=== PATIENT | female | born 2000 | race Caucasian/White ===

== ENCOUNTER 2018-10-19 20:13 | Emergency (ER) | payer OTHER ==
[~2018-10-19] VITALS: Ht 172.7 cm; Wt 55.5 kg
[2018-10-19 20:13] VITALS: BP 136/66
[2018-10-19 21:27] LABS: URINE PREG TEST NEGATIVE (NEGATIVE)
[2018-10-19] MEDS ORDERED: PYRI1TAB5 PO (21:53)
[2018-10-19] MEDS ORDERED: MACR100C43 PO (21:53)
[2018-10-19] MEDS ORDERED: PHENAZOPYRIDINE 100 MG TAB PO ONE (22:00)
[2018-10-19] MEDS ORDERED: NITROFURANTOIN (MACROBID) 100 MG CAP PO ONE (22:00)
== END 2018-10-19 22:01 | disposition home or self-care (01) ==
LOC: M ED 20:13
DX: N39.0 Urinary tract infection, site not specified (principal); R31.9 Hematuria, unspecified; Z88.0 Allergy status to penicillin

== ENCOUNTER 2019-02-14 11:13 | Emergency (ER) | payer OTHER ==
[~2019-02-14] VITALS: Ht 172.7 cm; Wt 56.8 kg
[~2019-02-14 11:13] MED LIST: MACR100C43 PO; PYRI1TAB5 PO
--- NOTE | 2019-02-14 13:45 | REP ---
Clinical: Bilateral pelvic pain . Technique: Transabdominal pelvic ultrasound followed by transvaginal examination for better evaluation of the endometrium and adnexa with color Doppler evaluation of the ovaries. Findings: Bladder is unremarkable and measures 9.0 x 6.2 x 2.6 cm . Normal retroverted uterus measures 6.6 x 3.3 x 4.3 cm . The endometrial complex measures 7.8 mm thickness. No discrete uterine or endometrial abnormalities are appreciated. Bilateral ovaries are normal in appearance and vascularity without evidence for torsion. Right ovary measures 3.7 x 3.0 x 3.2 cm with 2.5 cm cyst ; R I = 0.48. Left ovary measures 2.2 x 1.3 x 2.4 cm ; R I = 0.57. Trace pelvic free fluid is nonspecific. No pelvic mass lesion. Impression: 1. Normal uterus and left ovary. 2. Right ovarian cyst. Consider reevaluation in 4-6 weeks to evaluate for resolution. Electronically Signed by Ramón Combs MD 02/14/2019 01:37 P
[2019-02-14 13:59] VITALS: BP 125/75
--- NOTE | 2019-02-15 07:38 | ED PDOC ---
Post-Departure Follow-Up ft [email or web address] fp faxed formal report of pelvis us for fu Onidna Eaton MD Feb 15, 2019 07:38
== END 2019-02-14 14:07 | disposition home or self-care (01) ==
LOC: M ED 11:13
DX: N83.201 Unspecified ovarian cyst, right side (principal)